=== PATIENT | female | born 1965 | race Caucasian/White ===

== ENCOUNTER → 2017-01-19 | Outpatient (CLI) | payer BC ==
--- NOTE | 2017-01-20 09:40 | MM ---
Reason for exam: screening (asymptomatic). Last mammogram was performed 1 year and 8 months ago. History: Patient is nulliparous. Taking hormonal contraceptives for 8 years. Physical Findings: A clinical breast exam by your physician is recommended on an annual basis and results should be correlated with mammographic findings. MG 3D Screening Mammo W/Cad Bilateral CC and MLO view(s) were taken. Prior study comparison: June 02, 2015, bilateral MG screening mammo w CAD. April 12, 2006, bilateral screening mammogram w/CAD. There are scattered fibroglandular densities. Finding: There are typically benign round calcifications in both breasts. There is a chronic nodularity bilaterally. There is no discrete abnormality. ASSESSMENT: Benign, BI-RAD 2 RECOMMENDATION: Routine screening mammogram of both breasts in 1 year.
== END | disposition home or self-care (01) ==
LOC: RADMAMWWP 09:28
PROVIDERS: ATTEND Internal Medicine
DX: Z12.31 Encounter for screening mammogram for malignant neoplasm of breast (principal)
CPT/HCPCS: 77063; G0202

== ENCOUNTER → 2019-03-21 | Outpatient (CLI) | payer BC ==
--- NOTE | 2019-03-22 13:28 | MM ---
Reason for exam: screening (asymptomatic). Last mammogram was performed 2 years and 2 months ago. History: Patient is nulliparous. Taking hormonal contraceptives for 8 years. Physical Findings: A clinical breast exam by your physician is recommended on an annual basis and results should be correlated with mammographic findings. MG 3D Screening Mammo W/Cad Bilateral CC and MLO view(s) were taken. Prior study comparison: January 19, 2017, bilateral MG 3d screening mammo w/cad. June 02, 2015, bilateral MG screening mammo w CAD. There are scattered fibroglandular densities. There is chronic nodularity bilaterally, many of which represent intramammary lymph nodes. No significant changes when compared with prior studies. ASSESSMENT: Negative, BI-RAD 1 RECOMMENDATION: Routine screening mammogram of both breasts in 1 year.
== END | disposition home or self-care (01) ==
LOC: RADMAMWWP 07:59
PROVIDERS: ATTEND Internal Medicine
DX: Z12.31 Encounter for screening mammogram for malignant neoplasm of breast (principal)
CPT/HCPCS: 77063; 77067

== ENCOUNTER 2020-02-03 11:21 | Observation (INO) | payer BC ==
[2020-02-03] MEDS ORDERED: SODIUM CHLORIDE 0.9% 1,000 ML IV STA (11:44)
[2020-02-03] MEDS ORDERED: ONDANSETRON 4 MG/2 ML VIAL IVP STA (12:14)
[2020-02-03] MEDS ORDERED: HYDROmorphone 0.5 MG/0.5 ML SYRINGE IVP STA (12:14)
--- NOTE | 2020-02-03 12:18 | ED ---
General Adult HPI - General Chief complaint: Abdominal Pain Stated complaint: poss appendicitis Time Seen by Provider: 02/03/20 11:44 Source: patient Mode of arrival: ambulatory Limitations: no limitations - History of Present Illness Initial comments: 54-year-old female with a past medical history of hypertension presents to the emergency room for a chief complaint of right-sided abdominal pain. Patient states it started on Monday. States it is hard to decipher if it is in her upper or lower abdomen. Patient does state that he thinks denies excessive worse. States that straightening out her right leg makes it worse. Patient went to urgent care, sent over for rule out appendicitis. She did have a temperature up to 100.9 yesterday however this broke today. Patient denies diarrhea. Patient states she has had no appetite since Monday. She tried eat today and vomited.Patient has no other complaints at this time including shortness of breath, chest pain, headache, or visual changes. - Related Data Home Medications Medication Instructions Recorded Confirmed Amitriptyline HCl 10 mg PO HS 09/11/15 02/03/20 Losartan/Hydrochlorothiazide 1 each PO DAILY 09/11/15 02/03/20 [Losartan-Hctz 100-25 mg Tab] amLODIPine BESYLATE [Amlodipine 10 mg PO DAILY 09/11/15 02/03/20 Besylate] Cholecalciferol (Vitamin D3) 250 mcg PO DAILY 02/03/20 02/03/20 [Vitamin D3] Allergies Allergy/AdvReac Type Severity Reaction Status Date / Time Penicillins Allergy Rash/Hives, Verified 02/03/20 14:04 CHILD azithromycin AdvReac Abdominal Verified 02/03/20 14:04 Pain Review of Systems ROS Statement: Those systems with pertinent positive or pertinent negative responses have been documented in the HPI. ROS Other: All systems not noted in ROS Statement are negative. Past Medical History Past Medical History: Hypertension Additional Past Medical History / Comment(s): OCC BLOOD IN STOOL. History of Any Multi-Drug Resistant Organisms: None Reported Past Surgical History: Uterine Ablation Additional Past Surgical History / Comment(s): CERVICAL CONIZATION Past Anesthesia/Blood Transfusion Reactions: Motion Sickness, Postoperative Nausea & Vomiting (PONV) Smoking Status: Never smoker Past Alcohol Use History: Daily Past Drug Use History: None Reported - Past Family History Mother Family Medical History: Cancer General Exam Limitations: no limitations General appearance: alert, in no apparent distress Head exam: Present: atraumatic, normocephalic, normal inspection Eye exam: Present: normal appearance, PERRL, EOMI. Absent: scleral icterus, conjunctival injection, periorbital swelling ENT exam: Present: normal exam, mucous membranes moist Neck exam: Present: normal inspection, full ROM. Absent: tenderness, men ingismus, lymphadenopathy Respiratory exam: Present: normal lung sounds bilaterally. Absent: respiratory distress, wheezes, rales, rhonchi, stridor Cardiovascular Exam: Present: regular rate, normal rhythm, normal heart sounds. Absent: systolic murmur, diastolic murmur, rubs, gallop, clicks GI/Abdominal exam: Present: soft, tenderness (Tenderness of the right lower quadrant and at McBurney's point.), normal bowel sounds. Absent: distended, guarding, rebound, rigid Expanded GI/Abdominal exam: Present: obturator sign, tenderness at McBurney's Point. Absent: Ren's sign, Rovsing's sign Neurological exam: Present: alert Course Vital Signs 02/03/20 11:27 Temperature 98.4 F Pulse Rate 106 H Respiratory 18 Rate Blood Pressure 120/80 O2 Sat by Pulse 99 Oximetry Medical Decision Making - Medical Decision Making Vitals are stable. Patient is afebrile here however has been febrile at home. CBC shows leukocytosis with a left shift. CMP is unremarkable. Urinalysis is contaminated however no obvious evidence of infection. CT abdomen and pelvis shows mild thickening of the appendix measuring 9 mm with surrounding inflammatory change. There is moderate wall thickening of the terminal ileum and cecum. The findings could be on the basis of acute appendicitis with reactive wall thickening of the adjacent structures however additional possibility is that of Crohn's disease. Correlate clinically. Clinically patient does appear to have an appendicitis. No history of Crohn's. This is a new pain and patient has been febrile at home. She'll be treated with Rocephin and Flagyl. She will be admitted to Dr. Martines. - Lab Data Result diagrams: 02/03/20 12:20 02/03/20 12:20 Lab Results 02/03/20 02/03/20 02/03/20 Range/Units 12:20 12:20 12:20 WBC 14.1 H (3.8-10.6) k/uL RBC 4.04 (3.80-5.40) m/uL Hgb 13.0 (11.4-16.0) gm/dL Hct 38.9 (34.0-46.0) % MCV 96.4 (80.0-100.0) fL MCH 32.1 (25.0-35.0) pg MCHC 33.3 (31.0-37.0) g/dL RDW 12.4 (11.5-15.5) % Plt Count 262 (150-450) k/uL Neutrophils % 82 % Lymphocytes % 12 % Monocytes % 4 % Eosinophils % 0 % Basophils % 0 % Neutrophils # 11.6 H (1.3-7.7) k/uL Lymphocytes # 1.6 (1.0-4.8) k/uL Monocytes # 0.6 (0-1.0) k/uL Eosinophils # 0.1 (0-0.7) k/uL Basophils # 0.0 (0-0.2) k/uL Sodium 136 L (137-145) mmol/L Potassium 3.5 (3.5-5.1) mmol/L Chloride 101 (98-107) mmol/L Carbon Dioxide 23 (22-30) mmol/L Anion Gap 12 mmol/L BUN 21 H (7-17) mg/dL Creatinine 0.88 (0.52-1.04) mg/dL Est GFR (CKD-EPI)AfAm 87 (>60 ml/min/1.73 sqM) Est GFR (CKD-EPI)NonAf 76 (>60 ml/min/1.73 sqM) Glucose 129 H (74-99) mg/dL Plasma Lactic Acid Oskar (0.7-2.0) mmol/L Calcium 9.5 (8.4-10.2) mg/dL Total Bilirubin 1.0 (0.2-1.3) mg/dL AST 26 (14-36) U/L ALT 49 H (4-34) U/L Alkaline Phosphatase 67 (38-126) U/L Total Protein 7.5 (6.3-8.2) g/dL Albumin 4.4 (3.5-5.0) g/dL Amylase 47 (30-110) U/L Lipase 43 (23-300) U/L Urine Color Yellow Urine Appearance Cloudy H (Clear) Urine pH 6.0 (5.0-8.0) Ur Specific [place] 1.030 (1.001-1.035) Urine Protein Trace H (Negative) Urine Glucose (UA) Negative (Negative) Urine Ketones Negative (Negative) Urine Blood Trace H (Negative) Urine Nitrite Negative (Negative) Urine Bilirubin Negative (Negative) Urine Urobilinogen <2.0 (<2.0) mg/dL Ur Leukocyte Esterase Negative (Negative) Urine RBC 4 (0-5) /hpf Urine WBC 10 H (0-5) /hpf Ur Squamous Epith Cells 19 H (0-4) /hpf Urine Bacteria Moderate H (None) /hpf Urine Mucus Occasional H (None) /hpf 02/03/20 Range/Units 12:20 WBC (3.8-10.6) k/uL RBC (3.80-5.40) m/uL Hgb (11.4-16.0) gm/dL Hct (34.0-46.0) % MCV (80.0-100.0) fL MCH (25.0-35.0) pg MCHC (31.0-37.0) g/dL RDW (11.5-15.5) % Plt Count (150-450) k/uL Neutrophils % % Lymphocytes % % Monocytes % % Eosinophils % % Basophils % % Neutrophils # (1.3-7.7) k/uL Lymphocytes # (1.0-4.8) k/uL Monocytes # (0-1.0) k/uL Eosinophils # (0-0.7) k/uL Basophils # (0-0.2) k/uL Sodium (137-145) mmol/L Potassium (3.5-5.1) mmol/L Chloride (98-107) mmol/L Carbon Dioxide (22-30) mmol/L Anion Gap mmol/L BUN (7-17) mg/dL Creatinine (0.52-1.04) mg/dL Est GFR (CKD-EPI)AfAm (>60 ml/min/1.73 sqM) Est GFR (CKD-EPI)NonAf (>60 ml/min/1.73 sqM) Glucose (74-99) mg/dL Plasma Lactic Acid Oskar 1.1 (0.7-2.0) mmol/L Calcium (8.4-10.2) mg/dL Total Bilirubin (0.2-1.3) mg/dL AST (14-36) U/L ALT (4-34) U/L Alkaline Phosphatase (38-126) U/L Total Protein (6.3-8.2) g/dL Albumin (3.5-5.0) g/dL Amylase (30-110) U/L Lipase (23-300) U/L Urine Color Urine Appearance (Clear) Urine pH (5.0-8.0) Ur Specific [place] (1.001-1.035) Urine Protein (Negative) Urine Glucose (UA) (Negative) Urine Ketones (Negative) Urine Blood (Negative) Urine Nitrite (Negative) Urine Bilirubin (Negative) Urine Urobilinogen (<2.0) mg/dL Ur Leukocyte Esterase (Negative) Urine RBC (0-5) /hpf Urine WBC (0-5) /hpf Ur Squamous Epith Cells (0-4) /hpf Urine Bacteria (None) /hpf Urine Mucus (None) /hpf Disposition Clinical Impression: Appendicitis Disposition: [facility] Condition: Good Is patient prescribed a controlled substance at d/c from ED?: No Referrals: Cali Galindo MD [Primary Care Provider] - 1-2 days Time of Disposition: 14:32
[2020-02-03 12:52] LABS: Basophils % (A) 0 %; Eosinophils # (A) 0.1 k/uL (0-0.7); Eosinophils % (A) 0 %; HCT 38.9 % (34.0-46.0); Lymphocytes # (A) 1.6 k/uL (1.0-4.8); Lymphocytes % (A) 12 %; MCH 32.1 pg (25.0-35.0); MCHC 33.3 g/dL (31.0-37.0); MCV 96.4 fL (80.0-100.0); Mean Platelet Volume 7.6; Monocytes # (A) 0.6 k/uL (0-1.0); Monocytes % (A) 4 %; Neutrophils # (A) 11.6 k/uL (1.3-7.7); Neutrophils % (A) 82 %; Platelet Count 262 k/uL (150-450); RBC 4.04 m/uL (3.80-5.40); RDW 12.4 % (11.5-15.5); WBC 14.1 k/uL (3.8-10.6)
[2020-02-03 13:06] LABS: Albumin 4.4 g/dL (3.5-5.0); Appearance,Urine Cloudy (Clear); Bacteria,Urine Moderate /hpf; Bilirubin,Urine Negative (Negative); Blood,Urine Trace (Negative); Calcium 9.5 mg/dL (8.4-10.2); Color,Urine Yellow; Glucose,Urine (UA) Negative (Negative); Ketones,Urine Negative (Negative); Leukocyte Esterase,Urine Negative (Negative); Mucus,Urine Occasional /hpf; Nitrite,Urine Negative (Negative); Potassium 3.5 mmol/L (3.5-5.1); Protein,Urine Trace (Negative); RBC,Urine 4 /hpf (0-5); Squamous Epithelial Cell,Urine 19 /hpf (0-4); Total Protein 7.5 g/dL (6.3-8.2); Urobilinogen,Urine <2.0 mg/dL (<2.0); WBC,Urine 10 /hpf (0-5)
--- NOTE | 2020-02-03 13:30 | CT ---
EXAMINATION TYPE: CT abdomen pelvis w con DATE OF EXAM: 02/03/2020 COMPARISON: None HISTORY: RLQ pain CT DLP: 1347.2 mGycm CONTRAST: CT scan of the abdomen and pelvis is performed without Oral Contrast and with IV Contrast, patient in jected with 100 mL of Isovue 300. FINDINGS: LUNG BASES-: No visible nodule. No infiltrate. LIVER/GB: No calcified gallstones. Fatty liver with areas of focal fatty sparing and hepatomegaly. No space occupying hepatic lesion. Biliary tree is of normal caliber. PANCREAS: No inflammation. No distinct mass. SPLEEN: No splenic enlargement. No lesion seen. ADRENALS: No nodule. No thickening. KIDNEYS/BLADDER: No hydronephrosis. No nephrolithiasis. No distinct renal mass. Urinary bladder g rossly unremarkable. BOWEL: There is mild thickening of the appendix measuring 9 mm with surrounding inflammatory change. There is moderate wall thickening of the terminal ileum and cecum. The findings could be on the basis of acute appendicitis with reactive wall thickening of adjacent structures however additional possib ility is that of Crohn's disease. Correlate clinically. Remaining small and large bowel are unremarka ble. No evidence for abscess or free air at this time. GENITAL ORGANS: Calcified lesions of the uterus felt to reflect underlying leiomyomatous change. LYMPH NODES: No greater than 1cm abdominal or pelvic lymph nodes are appreciated. AORTA: No significant abnormality. OSSEOUS STRUCTURES: No significant abnormality is seen. OTHER: No significant additional abnormality is seen. IMPRESSION: 1. There is mild thickening of the appendix measuring 9 mm with surrounding inflammatory change. Ther e is moderate wall thickening of the terminal ileum and cecum. The findings could be on the basis of acute appendicitis with reactive wall thickening of adjacent structures however additional possibilit y is that of Crohn's disease. Correlate clinically.
[2020-02-03] MEDS ORDERED: NALOXONE 0.4 MG/ML 1 ML VIAL IV PRN (14:32)
[2020-02-03] MEDS ORDERED: ONDANSETRON 4 MG/2 ML VIAL IVP PRN (14:32)
[2020-02-03] MEDS ORDERED: cefTRIAXone IN SWFI 1,000 MG/10 ML SYRINGE IVP STA (14:33)
[2020-02-03] MEDS ORDERED: metroNIDAZOLE-NS PMX 500 MG in SALINE 1 100ML.BAG IVPB STA (14:33)
[2020-02-03] MEDS: SODIUM CHLORIDE 0.9% 1,000 ML IV SCH ×2 (15:46→23:29)
[2020-02-03] MEDS: HYDROmorphone 0.5 MG/0.5 ML SYRINGE IVP PRN ×3 (15:51→23:44)
[2020-02-03] MEDS: metroNIDAZOLE-NS PMX 500 MG in SALINE 1 100ML.BAG IVPB SCH (23:24)
[2020-02-04] MEDS: HYDROmorphone 0.5 MG/0.5 ML SYRINGE IVP PRN ×2 (03:32→06:08)
[2020-02-04] MEDS: metroNIDAZOLE-NS PMX 500 MG in SALINE 1 100ML.BAG IVPB SCH ×2 (08:44→16:56)
[2020-02-04] MEDS: SODIUM CHLORIDE 0.9% 1,000 ML IV SCH ×2 (08:45→16:57)
[2020-02-04] MEDS ORDERED: cefTRIAXone IN SWFI 1,000 MG/10 ML SYRINGE IVP SCH (09:00)
[2020-02-04 09:31] LABS: HCT 34.9 % (34.0-46.0); HGB 11.8 gm/dL (11.4-16.0); MCH 33.2 pg (25.0-35.0); MCHC 33.9 g/dL (31.0-37.0); MCV 97.8 fL (80.0-100.0); Mean Platelet Volume 7.6; Platelet Count 244 k/uL (150-450); RBC 3.57 m/uL (3.80-5.40); RDW 12.4 % (11.5-15.5); WBC 11.4 k/uL (3.8-10.6)
[2020-02-04] MEDS: amLODIPine 10 MG TAB PO SCH (10:25)
[2020-02-04] MEDS: LOSARTAN-HCTZ 50-12.5 MG 1 EACH TAB PO SCH (10:25)
--- NOTE | 2020-02-04 10:55 | P.GSCN ---
History of Present Illness Consult date: 02/03/20 Reason for Consult: Right lower quadrant pain History of present illness: Is a 54-year-old female with a 5 day history of right lower quadrant pain. Patient states the pain started in the right lower quadrant. She had diarrhea. The pain progressed. It worsened today. She was seen in the emergency room patient to CAT scan performed which showed evidence of inflammatory changes cecum ileum and appendix. Past Medical History Past Medical History: Hypertension Additional Past Medical History / Comment(s): Past UTI History of Any Multi-Drug Resistant Organisms: None Reported Past Surgical History: Uterine Ablation Additional Past Surgical History / Comment(s): Cervical conization x2, D&C, colonoscopy/polypectomy Past Anesthesia/Blood Transfusion Reactions: Motion Sickness, Postoperative Nausea & Vomiting (PONV) Smoking Status: Never smoker - Past Family History Mother Family Medical History: Cancer, Hyperlipidemia, Hypertension Additional Family Medical History / Comment(s): skin cancer. Father Family Medical History: Cancer Additional Family Medical History / Comment(s): Skin cancer, hiatal hernia, nephrolithiasis. Medications and Allergies Home Medications Medication Instructions Recorded Confirmed Type Amitriptyline HCl 10 mg PO HS 09/11/15 02/03/20 History Losartan/Hydrochlorothiazide 1 each PO DAILY 09/11/15 02/03/20 History [Losartan-Hctz 100-25 mg Tab] amLODIPine BESYLATE [Amlodipine 10 mg PO DAILY 09/11/15 02/03/20 History Besylate] Cholecalciferol (Vitamin D3) 250 mcg PO DAILY 02/03/20 02/03/20 History [Vitamin D3] Allergies Allergy/AdvReac Type Severity Reaction Status Date / Time Penicillins Allergy Rash/Hives, Verified 02/03/20 14:04 CHILD azithromycin AdvReac Abdominal Verified 02/03/20 14:04 Pain Surgical - Exam Vital Signs Temp Pulse Resp BP Pulse Ox 98.4 F 106 H 18 120/80 99 02/03/20 11:27 02/03/20 11:27 02/03/20 11:27 02/03/20 11:27 02/03/20 11:27 - General well developed, well nourished, no distress - Eyes PERRL - ENT normal pinna - Neck no masses - Respiratory normal expansion - Cardiovascular Rhythm: regular - Abdomen Moderate right lower quadrant pain. There is no rebound or guarding. Abdomen: soft Results - Labs 02/04/20 08:58 02/03/20 12:20 Abnormal Lab Results - Last 24 Hours (Table) 02/03/20 02/03/20 02/03/20 Range/Units 12:20 12:20 12:20 WBC 14.1 H (3.8-10.6) k/uL RBC (3.80-5.40) m/uL Neutrophils # 11.6 H (1.3-7.7) k/uL Sodium 136 L (137-145) mmol/L BUN 21 H (7-17) mg/dL Glucose 129 H (74-99) mg/dL ALT 49 H (4-34) U/L Urine Appearance Cloudy H (Clear) Urine Protein Trace H (Negative) Urine Blood Trace H (Negative) Urine WBC 10 H (0-5) /hpf Ur Squamous Epith Cells 19 H (0-4) /hpf Urine Bacteria Moderate H (None) /hpf Urine Mucus Occasional H (None) /hpf 02/04/20 Range/Units 08:58 WBC 11.4 H (3.8-10.6) k/uL RBC 3.57 L (3.80-5.40) m/uL Neutrophils # (1.3-7.7) k/uL Sodium (137-145) mmol/L BUN (7-17) mg/dL Glucose (74-99) mg/dL ALT (4-34) U/L Urine Appearance (Clear) Urine Protein (Negative) Urine Blood (Negative) Urine WBC (0-5) /hpf Ur Squamous Epith Cells (0-4) /hpf Urine Bacteria (None) /hpf Urine Mucus (None) /hpf Diabetes panel 02/03/20 Range/Units 12:20 Sodium 136 L (137-145) mmol/L Potassium 3.5 (3.5-5.1) mmol/L Chloride 101 (98-107) mmol/L Carbon Dioxide 23 (22-30) mmol/L BUN 21 H (7-17) mg/dL Creatinine 0.88 (0.52-1.04) mg/dL Glucose 129 H (74-99) mg/dL Calcium 9.5 (8.4-10.2) mg/dL AST 26 (14-36) U/L ALT 49 H (4-34) U/L Alkaline Phosphatase 67 (38-126) U/L Total Protein 7.5 (6.3-8.2) g/dL Albumin 4.4 (3.5-5.0) g/dL Calcium panel 02/03/20 Range/Units 12:20 Calcium 9.5 (8.4-10.2) mg/dL Albumin 4.4 (3.5-5.0) g/dL Pituitary panel 02/03/20 Range/Units 12:20 Sodium 136 L (137-145) mmol/L Potassium 3.5 (3.5-5.1) mmol/L Chloride 101 (98-107) mmol/L Carbon Dioxide 23 (22-30) mmol/L BUN 21 H (7-17) mg/dL Creatinine 0.88 (0.52-1.04) mg/dL Glucose 129 H (74-99) mg/dL Calcium 9.5 (8.4-10.2) mg/dL Adrenal panel 02/03/20 Range/Units 12:20 Sodium 136 L (137-145) mmol/L Potassium 3.5 (3.5-5.1) mmol/L Chloride 101 (98-107) mmol/L Carbon Dioxide 23 (22-30) mmol/L BUN 21 H (7-17) mg/dL Creatinine 0.88 (0.52-1.04) mg/dL Glucose 129 H (74-99) mg/dL Calcium 9.5 (8.4-10.2) mg/dL Total Bilirubin 1.0 (0.2-1.3) mg/dL AST 26 (14-36) U/L ALT 49 H (4-34) U/L Alkaline Phosphatase 67 (38-126) U/L Total Protein 7.5 (6.3-8.2) g/dL Albumin 4.4 (3.5-5.0) g/dL - Imaging CT scan - abdomen: report reviewed (Mild thickened appendix with moderate inflammatory changes cecum and terminal ileum) Assessment and Plan Assessment: Right lower quadrant pain Possible Crohn's disease Possible appendicitis Patient will be observed placed on antibiotics.
--- NOTE | 2020-02-04 12:36 | P.PN ---
Subjective Progress Note Date: 02/04/20 CHIEF COMPLAINT: Right lower quadrant abdominal pain HISTORY OF PRESENT ILLNESS: Patient seen and examined with Dr. Martines. Patient reports that she has had slight improvement in her abdominal pain. She is currently nothing by mouth. She denies any nausea or vomiting. T-max 100. Temp this morning 98.9. White count 14.1.1 ALT 49 PHYSICAL EXAM: VITAL SIGNS: Reviewed. GENERAL: Well-developed in no acute distress. HEENT: No sclera icterus. Extraocular movements grossly intact. Moist buccal m ucosa. Head is atraumatic, normocephalic. ABDOMEN: Soft. Tenderness to palpation right lower quadrant. No rebound or guarding NEUROLOGIC: Alert and oriented. Cranial nerves II through XII grossly intact. ASSESSMENT: 1. Right lower quadrant pain 2. Possible Crohn's disease 3. Possible appendicitis PLAN: -Continue to observe patient closely -Continue IV antibiotics -Start patient on clear liquid diet Physician [employer] note has been reviewed by physician. Signing provider agrees with the documented findings, assessment, and plan of care. Objective - Vital Signs Vital signs: Vital Signs Temp 98.9 F 02/04/20 08:21 Pulse 93 02/04/20 08:21 Resp 12 02/04/20 08:21 BP 99/60 02/04/20 08:21 Pulse Ox 94 L 02/04/20 08:21 Intake & Output 02/03/20 02/04/20 02/04/20 18:59 06:59 18:59 Intake Total 240 Balance 240 Weight 88.451 kg Intake: Intake, IV Titration 240 Amount Sodium Chloride 0.9% 1, 240 000 ml @ 120 mls/hr IV . Q8H20M [facility] Rx#:[id number] Other: Voiding Method Toilet # Voids 1 - Labs CBC & Chem 7: 02/04/20 08:58 02/03/20 12:20 Labs: Abnormal Lab Results - Last 24 Hours (Table) 02/03/20 02/03/20 02/03/20 Range/Units 12:20 12:20 12:20 WBC 14.1 H (3.8-10.6) k/uL RBC (3.80-5.40) m/uL Neutrophils # 11.6 H (1.3-7.7) k/uL Sodium 136 L (137-145) mmol/L BUN 21 H (7-17) mg/dL Glucose 129 H (74-99) mg/dL ALT 49 H (4-34) U/L Urine Appearance Cloudy H (Clear) Urine Protein Trace H (Negative) Urine Blood Trace H (Negative) Urine WBC 10 H (0-5) /hpf Ur Squamous Epith Cells 19 H (0-4) /hpf Urine Bacteria Moderate H (None) /hpf Urine Mucus Occasional H (None) /hpf 02/03/ Range/Units 08:58 WBC 11.4 H (3.8-10.6) k/uL RBC 3.57 L (3.80-5.40) m/uL Neutrophils # (1.3-7.7) k/uL Sodium (137-145) mmol/L BUN (7-17) mg/dL Glucose (74-99) mg/dL ALT (4-34) U/L Urine Appearance (Clear) Urine Protein (Negative) Urine Blood (Negative) Urine WBC (0-5) /hpf Ur Squamous Epith Cells (0-4) /hpf Urine Bacteria (None) /hpf Urine Mucus (None) /hpf
--- NOTE | 2020-02-04 14:59 | P.CONS ---
History of Present Illness - Reason for Consult Consult date: 02/04/20 Medical management Requesting physician: Declan Martines - Chief Complaint Abdominal pain - History of Present Illness Consultation: This is a pleasant 54-year-old patient of Dr. Cali Galindo. Chronic stable medical conditions include hypertension, insomnia for which she takes amitriptyline, obesity. Patient normally reasonably good health. About 5 days ago patient started out with pain in the lower abdomen across and in the right lower quadrant. Episodes with the pain will travel to the right site. Appetite rundown. Following 2 days she started having low-grade fever up to 100.2 200.9. Patient did walk with some food on Monday. Appetite had not been good. No chest bowel movement. He goes every day. Does feel tired and rundown. No appetite. Came down to the ER. Computed tomography scan of the abdomen shows question suggestion about appendix. Also some inflammation of the terminal ileum. Patient started IV fluids and antibiotics. His initial consent about acute appendicitis. Patient had a colonoscopy about [address] Rodriguez. Found to have internal hemorrhoids. Polyp was removed. Other than this presentation patient denies any previous GI symptoms. Review of systems: GEN.: Tired, low-grade fever, decreased appetite EYES: None HEENT: None NECK: None RESPIRATORY: None CARDIOVASCULAR: None GASTROINTESTINAL: As above GENITOURINARY: None MUSCULOSKELETAL: None LYMPHATICS: None HEMATOLOGICAL: None PSYCHIATRY: None NEUROLOGICAL: None Past medical history to include: Hypertension, insomnia, internal hemorrhoids Social history: Patient drinks 1-2 glasses of wine a day after one half a bottle. During this COVID. She may be drinking a bit more she thinks. 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 Does not smoke. . Physical examination: VITAL SIGNS: 100, 106, 16, 120/69, 93% room air GENERAL: [BMI 32.4, sitting up in bed, bit tired EYES: Pupils equal. Conjunctiva normal. HEENT: External appearance of nose and ears normal, oral cavity grossly normal. NECK: JVD not raised; masses not palpable. HEART: First and second heart sounds are normal; no edema. LUNGS: Respiratory rate normal; clear to auscultation. ABDOMEN: Soft, right lower quadrant deep tenderness, no guarding rigidity, liver spleen not palpable, no masses palpable. PSYCH: Alert and oriented x3; mood and affect normal. NEUROLOGICAL: Cranial nerves grossly intact; no facial asymmetry, power and sensation grossly intact. LYMPHATICS: No lymph nodes palpable in the axilla and neck INVESTIGATIONS, reviewed in the clinical context: White count 14.1 hemoglobin 13 platelets 262 potassium 3.5 creatinine 0.88 UA positive for trace blood Computed tomography scan of the abdomen and pelvis with contrast mild thickening of the appendix with surrounding from a tree change moderate wall thickening of the terminal ileum and cecum. Assessment: -This is a patient with 5 days of not feeling well or abdominal pain low-grade fever. Patient could have terminal enteritis/ileitis. Often can be vital. Empirically antibiotics being given. Acute appendicitis and that he cannot be ruled out. -Possible sepsis from above, POA -Essential hypertension -Chronic insomnia idiopathic -Obesity BMI 32.4 Plan: Patient is on IV ceftriaxone and IV Flagyl. IV fluids. Lovenox for DVT prophylaxis. Home medications resumed. On 2 liquids. Care was discussed with the patient has been out of the bedside. Expected have some remarkable improvement in next [address] Martines Past Medical History Past Medical History: Hypertension Additional Past Medical History / Comment(s): Past UTI History of Any Multi-Drug Resistant Organisms: None Reported Past Surgical History: Uterine Ablation Additional Past Surgical History / Comment(s): Cervical conization x2, D&C, colonoscopy/polypectomy Past Anesthesia/Blood Transfusion Reactions: Motion Sickness, Postoperative Nausea & Vomiting (PONV) Smoking Status: Never smoker - Past Family History Mother Family Medical History: Cancer, Hyperlipidemia, Hypertension Additional Family Medical History / Comment(s): skin cancer. Father Family Medical History: Cancer Additional Family Medical History / Comment(s): Skin cancer, hiatal hernia, nephrolithiasis. Medications and Allergies Home Medications Medication Instructions Recorded Confirmed Type Amitriptyline HCl 10 mg PO HS 09/11/15 02/03/20 History Losartan/Hydrochlorothiazide 1 each PO DAILY 09/11/15 02/03/20 History [Losartan-Hctz 100-25 mg Tab] amLODIPine BESYLATE [Amlodipine 10 mg PO DAILY 09/11/15 02/03/20 History Besylate] Cholecalciferol (Vitamin D3) 250 mcg PO DAILY 02/03/20 02/03/20 History [Vitamin D3] Allergies Allergy/AdvReac Type Severity Reaction Status Date / Time Penicillins Allergy Rash/Hives, Verified 02/03/20 14:04 CHILD azithromycin AdvReac Abdominal Verified 02/03/20 14:04 Pain Physical Exam Vitals: Vital Signs Temp Pulse Pulse Pulse Resp BP BP 02/04/20 08:21 98.9 F 93 12 99/60 02/04/20 02:55 97.7 F 95 18 119/79 02/03/20 21:00 99.9 F H 100 18 114/71 02/03/20 17:58 100 F H 106 H 16 120/69 02/03/20 17:29 99.5 F 95 18 115/70 02/03/20 14:42 88 18 103/61 02/03/20 11:27 98.4 F 106 H 18 120/80 Pulse Ox 02/04/20 08:21 94 L 02/04/20 02:55 91 L 02/03/20 21:00 92 L 02/03/20 17:58 93 L 02/03/20 17:29 96 02/03/20 14:42 96 02/03/20 11:27 99 Intake and Output 02/03/20 02/04/20 02/04/20 22:59 06:59 14:59 Other: Voiding Method Toilet Toilet # Voids 1 Weight 88.451 kg Results CBC & Chem 7: 02/04/20 08:58 02/03/20 12:20 Labs: Abnormal Lab Results - Last 24 Hours (Table) 02/03/20 02/03/20 02/03/20 Range/Units 12:20 12:20 12:20 WBC 14.1 H (3.8-10.6) k/uL Neutrophils # 11.6 H (1.3-7.7) k/uL Sodium 136 L (137-145) mmol/L BUN 21 H (7-17) mg/dL Glucose 129 H (74-99) mg/dL ALT 49 H (4-34) U/L Urine Appearance Cloudy H (Clear) Urine Protein Trace H (Negative) Urine Blood Trace H (Negative) Urine WBC 10 H (0-5) /hpf Ur Squamous Epith Cells 19 H (0-4) /hpf Urine Bacteria Moderate H (None) /hpf Urine Mucus Occasional H (None) /hpf
[2020-02-04] MEDS: ENOXAPARIN 40 MG/0.4 ML SYRINGE SQ SCH (15:25)
[2020-02-04] MEDS ORDERED: AMITRIPTYLINE HCL 10 MG TAB PO SCH (21:00)
[2020-02-04] MEDS ORDERED: ACETAMINOPHEN TAB 325 MG TAB PO STA (21:44)
[2020-02-05] MEDS: metroNIDAZOLE-NS PMX 500 MG in SALINE 1 100ML.BAG IVPB SCH ×2 (00:03→07:37)
[2020-02-05] MEDS: SODIUM CHLORIDE 0.9% 1,000 ML IV SCH ×2 (02:25→07:40)
[2020-02-05] MEDS: ENOXAPARIN 40 MG/0.4 ML SYRINGE SQ SCH (07:34)
[2020-02-05] MEDS: LOSARTAN-HCTZ 50-12.5 MG 1 EACH TAB PO SCH (07:37)
[2020-02-05] MEDS: amLODIPine 10 MG TAB PO SCH (07:37)
[2020-02-05 07:45] VITALS: BP 124/77; PULSE 84; RESP 14; TEMP 98.7
[2020-02-05 09:06] LABS: Basophils % (A) 0 %; Eosinophils # (A) 0.2 k/uL (0-0.7); Eosinophils % (A) 3 %; HCT 37.1 % (34.0-46.0); HGB 12.4 gm/dL (11.4-16.0); Lymphocytes # (A) 1.7 k/uL (1.0-4.8); Lymphocytes % (A) 18 %; MCH 32.3 pg (25.0-35.0); MCHC 33.4 g/dL (31.0-37.0); MCV 96.6 fL (80.0-100.0); Mean Platelet Volume 7.5; Monocytes # (A) 0.5 k/uL (0-1.0); Monocytes % (A) 5 %; Neutrophils # (A) 6.7 k/uL (1.3-7.7); Neutrophils % (A) 72 %; Platelet Count 257 k/uL (150-450); RBC 3.84 m/uL (3.80-5.40); RDW 12.2 % (11.5-15.5); WBC 9.4 k/uL (3.8-10.6)
--- NOTE | 2020-02-05 11:43 | P.DS ---
Providers Date of admission: 02/03/20 14:51 Expected date of discharge: 02/05/20 Attending physician: Declan Martines Consults: 02/03/20 18:04 Consult Physician Routine Consulting Provider: James Vergara Consult Reason/Comments: medical managment Do you want consulting provider notified?: Yes Primary care physician: Cali Galindo [facility] Course: Discharge diagnosis 1. Right lower quadrant pain 2. Possible Crohn's disease 3. Possible appendicitis Hospital course This is a 54-year-old female with a 5 day history of right lower quadrant pain. Patient states the pain started in the right lower quadrant. She had diarrhea. The pain progressed. It worsened today. She was seen in the emergency room patient to CAT scan performed which showed evidence of inflammatory changes cecum ileum and appendix. Patient is tolerating diet. She is no longer having fevers. White count has normalized to 9.4. She's up and ambulating. She is having bowel movements. She is stable for discharge. She will continue antibiotics for one week post discharge. Also, recommend colonoscopy to be completed in a few weeks. Physician Loss Prevention Manager note has been reviewed by physician. Signing provider agrees with the documented findings, assessment, and plan of care. Patient Condition at Discharge: Stable Plan - Discharge Summary Discharge Rx Participant: No New Discharge Prescriptions: New metroNIDAZOLE [Flagyl] 500 mg PO TID #21 tab Levofloxacin [Levaquin] 500 mg PO DAILY 7 Days #7 tab Continue amLODIPine BESYLATE [Amlodipine Besylate] 10 mg PO DAILY Amitriptyline HCl 10 mg PO HS Losartan/Hydrochlorothiazide [Losartan-Hctz 100-25 mg Tab] 1 each PO DAILY Cholecalciferol (Vitamin D3) [Vitamin D3] 250 mcg PO DAILY Discharge Medication List Amitriptyline HCl 10 mg PO HS 09/11/15 [History] Losartan/Hydrochlorothiazide [Losartan-Hctz 100-25 mg Tab] 1 each PO DAILY 09/11/15 [History] amLODIPine BESYLATE [Amlodipine Besylate] 10 mg PO DAILY 09/11/15 [History] Cholecalciferol (Vitamin D3) [Vitamin D3] 250 mcg PO DAILY 02/03/20 [History] Levofloxacin [Levaquin] 500 mg PO DAILY 7 Days #7 tab 02/05/20 [Rx] metroNIDAZOLE [Flagyl] 500 mg PO TID #21 tab 02/05/20 [Rx] Follow up Appointment(s)/Referral(s): Cali Galindo MD [Primary Care Provider] - 1-2 days Declan Martines MD [STAFF PHYSICIAN] - 1 Week Patient Instructions/Handouts: Appendicitis (GEN) Activity/Diet/Wound Care/Special Instructions: Activity as tolerated Diet advance as tolerated Okay to use Tylenol [id number] as needed for pain Discharge Disposition: HOME SELF-CARE
--- NOTE | 2020-02-05 23:19 | P.PN ---
Progress Note - Text Progress Note Date: 02/05/20 - Chief Complaint Abdominal pain Consultation: This is a pleasant 54-year-old patient of Dr. Cali Galindo. Chronic stable medical conditions include hypertension, insomnia for which she takes amitriptyline, obesity. Patient normally reasonably good health. About 5 days ago patient started out with pain in the lower abdomen across and in the right lower quadrant. Episodes with the pain will travel to the right site. Appetite rundown. Following 2 days she started having low-grade fever up to 100.2 200.9. Patient did walk with some food on Monday. Appetite had not been good. No chest bowel movement. He goes every day. Does feel tired and rundown. No appetite. Came down to the ER. Computed tomography scan of the abdomen shows question suggestion about appendix. Also some inflammation of the terminal ileum. Patient started IV fluids and antibiotics. His initial consent about acute appendicitis. Patient had a colonoscopy about [address] Rodriguez. Found to have internal hemorrhoids. Polyp was removed. Other than this presentation patient denies any previous GI symptoms. admitted with the diagnosis of terminal possible viral ileitis.given IV fluids antibiotics. Responded well. Today-feeling well. Did tolerate liquids. No abdominal pain. Sitting up in a chair. Much improved. Review of systems: Was done for constitutional, cardiovascular, GI, pulmonary. relevant finding as above current medications reviewed in today's electronic records Physical examination: VITAL SIGNS: 98.7, 84, 14, 124/77, 93% room air GENERAL: sitting up in a chair, comfortable perky EYES: Pupils equal. Conjunctiva normal. HEENT: External appearance of nose and ears normal, oral cavity grossly normal. NECK: JVD not raised; masses not palpable. HEART: First and second heart sounds are normal; no edema. LUNGS: Respiratory rate normal; clear to auscultation. ABDOMEN: Soft, minimalright lower quadrant deep tenderness, no guarding rigidity, liver spleen not palpable, no masses palpable. PSYCH: Alert and oriented x3; mood and affect normal. INVESTIGATIONS, reviewed in the clinical context: White count 9.4 hemoglobin 12.4 Previous testing White count 14.1 hemoglobin 13 platelets 262 potassium 3.5 creatinine 0.88 UA positive for trace blood Computed tomography scan of the abdomen and pelvis with contrast mild thickening of the appendix with surrounding from a tree change moderate wall thickening of the terminal ileum and cecum. Assessment: -This is a patient with 5 days of not feeling well or abdominal pain low-grade fever. Patient could have terminal enteritis/ileitis. Often can be vital. Empirically antibiotics being given. much improved -Possible sepsis from above, POA -Essential hypertension -Chronic insomnia idiopathic -Obesity BMI 32.4 Plan: Patient is on IV ceftriaxone and IV Flagyl. IV fluids. diet to be advanced. Discussed with the patient.. Thank you Dr. Martines
== END 2020-02-05 12:30 | disposition home or self-care (01) ==
LOC: EC 11:21 → 1SOBS 14:51
PROVIDERS: ADMIT Surgery; ATTEND Surgery
DX: R10.31 Right lower quadrant pain (principal); R19.7 Diarrhea, unspecified; R50.9 Fever, unspecified; R53.83 Other fatigue; R63.0 Anorexia; F51.04 Psychophysiologic insomnia; F51.01 Primary insomnia; I10 Essential (primary) hypertension; E66.9 Obesity, unspecified; K64.8 Other hemorrhoids; Z79.899 Other long term (current) drug therapy; Z88.0 Allergy status to penicillin; Z88.1 Allergy status to other antibiotic agents; Z87.19 Personal history of other diseases of the digestive system; Z98.890 Other specified postprocedural states; Z87.898 Personal history of other specified conditions; Z91.89 Other specified personal risk factors, not elsewhere classified; Z68.32 Body mass index [BMI] 32.0-32.9, adult; Z86.010 Personal history of colon polyps; Z87.440 Personal history of urinary (tract) infections; Z80.8 Family history of malignant neoplasm of other organs or systems; Z83.438 Family history of other disorder of lipoprotein metabolism and other lipidemia; Z82.49 Family history of ischemic heart disease and other diseases of the circulatory system; Z83.79 Family history of other diseases of the digestive system; Z84.1 Family history of disorders of kidney and ureter
CPT/HCPCS: 96361 ×2; 96366 ×3; 96367; 96376 ×3; 96365; 96375; 99285; 36415; 80053; 82150; 83605; 83690; 85025 ×2; 85027; 81001; 87040; 74177; G0378 ×3; J2405; J0696 ×2; J1170 ×2; Q9967